=== PATIENT | male | born 1965 | race Caucasian/White ===

== ENCOUNTER → 2017-07-16 | Outpatient (CLI) | payer BC ==
[2017-07-16 15:14] LABS: CLARITY URINE CLEAR (CLEAR); COLOR URINE YELLOW (YELLOW); GLUCOSE URINE NEGATIVE (NEGATIVE); KETONES URINE NEGATIVE (NEGATIVE); LEUKOCYTE ESTERASE URINE NEGATIVE (NEGATIVE); NITRITE URINE NEGATIVE (NEGATIVE); OCCULT BLOOD URINE NEGATIVE (NEGATIVE); PROTEIN URINE NEGATIVE (NEGATIVE); SPECIFIC GRAVITY URINE 1.025 (1.005-1.030); UROBILINOGEN URINE 0.2 E.U./dL (0.2-1.0)
[2017-07-16 15:18] LABS: BASOPHILS % 0.5 % (0.0-2.0); EOSINOPHILS % 1.1 % (0.0-5.0); HEMATOCRIT. 47.4 % (42.0-52.0); LYMPHOCYTES % 38.9 % (20.0-50.0); MEAN CORPUSCULAR HEMOGLOBIN 30.3 pg (28.0-32.0); MEAN CORPUSCULAR VOLUME 89.9 fL (80.0-94.0); MEAN PLATELET VOLUME 8.1 fl (7.4-10.4); MONOCYTES % 9.4 % (2.0-8.0); NEUTROPHILS % 50.1 % (40.0-76.0); PLATELET 169 x1000/uL (130-400); RED BLOOD CELL COUNT 5.27 mill/uL (4.7-6.1); RED CELL DISTRIBUTION WIDTH 13.2 % (11.6-14.6)
[2017-07-16 15:29] LABS: CARBON DIOXIDE 27 mEq/L (21-32); CHLORIDE 106 mEq/L (98-107); HDL CHOLESTEROL 42 mg/dL (40-59); LDL CHOLESTEROL 113 mg/dL (5-100)
== END | disposition home or self-care (01) ==
LOC: RAD 12:57
PROVIDERS: ATTEND Internal Medicine Pulmonary Disease
DX: J44.9 Chronic obstructive pulmonary disease, unspecified (principal); E66.9 Obesity, unspecified; R76.11 Nonspecific reaction to tuberculin skin test without active tuberculosis
CPT/HCPCS: 36415; 71020; 80053; 80061; 81003; 84153; 85025; 87086

== ENCOUNTER → 2018-07-16 | Outpatient (CLI) | payer BC ==
[2018-07-16 06:20] LABS: BASOPHILS % 0.7 % (0.0-2.0); EOSINOPHILS % 1.9 % (0.0-5.0); HEMATOCRIT. 47.5 % (42.0-52.0); HEMOGLOBIN. 16.3 g/dL (14.0-18.0); LYMPHOCYTES % 35.1 % (20.0-50.0); MEAN CORPUSCULAR HEMOGLOBIN 31.1 pg (28.0-32.0); MEAN CORPUSCULAR VOLUME 90.8 fL (80.0-94.0); MEAN PLATELET VOLUME 7.9 fl (7.4-10.4); MONOCYTES % 11.3 % (2.0-8.0); PLATELET 162 x1000/uL (130-400); RED BLOOD CELL COUNT 5.23 mill/uL (4.7-6.1); RED CELL DISTRIBUTION WIDTH 13.3 % (11.6-14.6)
[2018-07-16 06:25] LABS: CHLORIDE 107 mEq/L (98-107)
[2018-07-16 06:28] LABS: CLARITY URINE CLEAR (CLEAR); COLOR URINE YELLOW (YELLOW); KETONES URINE TRACE (NEGATIVE); LEUKOCYTE ESTERASE URINE NEGATIVE (NEGATIVE); NITRITE URINE NEGATIVE (NEGATIVE); OCCULT BLOOD URINE NEGATIVE (NEGATIVE); PH URINE 6.5 (4.5-8.0); PROTEIN URINE NEGATIVE (NEGATIVE); SPECIFIC GRAVITY URINE 1.019 (1.005-1.030); UROBILINOGEN URINE 0.2 E.U./dL (0.2-1.0)
[2018-07-16 06:36] LABS: LDL CHOLESTEROL 103 mg/dL (5-100)
[2018-07-16 06:38] LABS: HDL CHOLESTEROL 42 mg/dL (40-59)
== END | disposition home or self-care (01) ==
LOC: LAB 05:09
PROVIDERS: ATTEND Internal Medicine Pulmonary Disease
DX: I10 Essential (primary) hypertension (principal); E78.5 Hyperlipidemia, unspecified; R79.89 Other specified abnormal findings of blood chemistry
CPT/HCPCS: 36415; 80053; 80061; 81003; 83036; 84153; 85025; G0103

== ENCOUNTER 2019-04-12 08:22 | Emergency (ER) | payer BC ==
[~2019-04-12] VITALS: Ht 167.6 cm; Wt 98.0 kg
[2019-04-12] MEDS ORDERED: IBUPROFEN 800MG TABLET PO ONE (08:45)
[2019-04-12 09:26] LABS: BASOPHILS % 0.2 % (0.0-2.0); EOSINOPHILS % 0.6 % (0.0-5.0); LYMPHOCYTES % 15.2 % (20.0-50.0); MEAN PLATELET VOLUME 8.2 fl (7.4-10.4); MONOCYTES % 10.7 % (2.0-8.0); NEUTROPHILS % 73.3 % (40.0-76.0); PLATELET 148 x1000/uL (130-400); RED BLOOD CELL COUNT 4.84 mill/uL (4.7-6.1)
[2019-04-12 09:33] LABS: CHLORIDE 106 mEq/L (98-107)
[2019-04-12 10:56] LABS: CLARITY URINE CLEAR (CLEAR); COLOR URINE YELLOW (YELLOW); KETONES URINE TRACE (NEGATIVE); LEUKOCYTE ESTERASE URINE 1+ (NEGATIVE); NITRITE URINE NEGATIVE (NEGATIVE); OCCULT BLOOD URINE NEGATIVE (NEGATIVE); PROTEIN URINE NEGATIVE (NEGATIVE); SPECIFIC GRAVITY URINE 1.023 (1.005-1.030)
[2019-04-12 11:45] VITALS: BP 111/75
== END 2019-04-12 11:47 | disposition home or self-care (01) ==
LOC: ER 08:22
DX: N39.0 Urinary tract infection, site not specified (principal); Z90.89 Acquired absence of other organs
CPT/HCPCS: 36415; 76770; 80053; 81003; 85025; 99284; Z7610

== ENCOUNTER 2019-07-06 06:01 | Emergency (ER) | payer BC ==
[~2019-07-06] VITALS: Ht 172.7 cm; Wt 100.0 kg
[2019-07-06] MEDS ORDERED: MORPHINE SULFATE 4 MG/ML CPJ (NOT FOR IM USE) IV ONE ×4 (07:15→20:45)
[2019-07-06] MEDS ORDERED: SODIUM CHLORIDE 0.9% 1,000 ML IV ONE ×3 (07:15→14:30)
[2019-07-06] MEDS ORDERED: ONDANSETRON HCL 4MG/2ML INJ IV ONE (07:15)
[2019-07-06 07:49] LABS: BASOPHILS % 0.2 % (0.0-2.0); HEMATOCRIT. 50.5 % (42.0-52.0); LYMPHOCYTES % 8.7 % (20.0-50.0); MEAN CORPUSCULAR HEMOGLOBIN 30.6 pg (28.0-32.0); MEAN CORPUSCULAR VOLUME 90.8 fL (80.0-94.0); MEAN PLATELET VOLUME 8.3 fl (7.4-10.4); NEUTROPHILS % 82.1 % (40.0-76.0); PLATELET 162 x1000/uL (130-400); RED BLOOD CELL COUNT 5.57 mill/uL (4.7-6.1); RED CELL DISTRIBUTION WIDTH 13.6 % (11.6-14.6)
[2019-07-06 07:55] LABS: CHLORIDE 102 mEq/L (98-107)
[2019-07-06 07:58] LABS: PROTHROMBIN TIME 10.7 sec (9.6-11.0)
[2019-07-06] MEDS ORDERED: HEPARIN 5000 UNITS/ML VIAL IV ONE (10:15)
[2019-07-06] MEDS ORDERED: HEPARIN 25,000 UNITS PREMIX 500 ML IV SCH ×2 (10:15→10:45)
[2019-07-06] MEDS ORDERED: HEPARIN 5000 UNITS/ML VIAL IV NR (10:30)
[2019-07-06] MEDS ORDERED: AMPICILLIN SOD/SULBACTAM NA 3 G in SODIUM CHLORIDE 0.9% 100 ML IV SCH (10:30)
[2019-07-06] MEDS ORDERED: HEPARIN 80 UNITS/KG BOLUS IV NR (10:45)
[2019-07-06] MEDS ORDERED: HEPARIN BOLUS PRN aPTT 37-44 IV (10:45)
[2019-07-06] MEDS ORDERED: HEPARIN BOLUS PRN aPTT <36 IV (10:45)
[2019-07-06] MEDS ORDERED: LEVOFLOXACIN 750MG PREMIX 150 ML IV NR (11:15)
[2019-07-06 11:54] LABS: CLARITY URINE CLEAR (CLEAR); COLOR URINE YELLOW (YELLOW); KETONES URINE 1+ (NEGATIVE); LEUKOCYTE ESTERASE URINE NEGATIVE (NEGATIVE); NITRITE URINE NEGATIVE (NEGATIVE); OCCULT BLOOD URINE NEGATIVE (NEGATIVE); PROTEIN URINE NEGATIVE (NEGATIVE)
[2019-07-06] MEDS ORDERED: METRONIDAZOLE 500 MG PREMIX 100 ML IV NR (12:00)
[2019-07-06] MEDS ORDERED: IOHEXOL-300 100 ML BOTTLE ONE (14:06)
[2019-07-06 15:10] LABS: BASOPHILS % 0.2 % (0.0-2.0); HEMATOCRIT. 48.6 % (42.0-52.0); HEMOGLOBIN. 16.3 g/dL (14.0-18.0); LYMPHOCYTES % 11.9 % (20.0-50.0); MEAN CORPUSCULAR HEMOGLOBIN 30.7 pg (28.0-32.0); MEAN CORPUSCULAR VOLUME 91.5 fL (80.0-94.0); MEAN PLATELET VOLUME 8.3 fl (7.4-10.4); MONOCYTES % 10.6 % (2.0-8.0); NEUTROPHILS % 77.3 % (40.0-76.0); PLATELET 143 x1000/uL (130-400); RED BLOOD CELL COUNT 5.31 mill/uL (4.7-6.1); RED CELL DISTRIBUTION WIDTH 13.9 % (11.6-14.6)
[2019-07-06] MEDS ORDERED: METRONIDAZOLE 500 MG PREMIX 100 ML IV ONE (16:00)
[2019-07-06 19:37] LABS: INR 1.1; PROTHROMBIN TIME 11.6 sec (9.6-11.0)
[2019-07-06] MEDS ORDERED: IOHEXOL-350 100 ML BOTTLE ONE (19:38)
[2019-07-06 19:44] LABS: PARTIAL THROMBOPLASTIN TIME 76.3 sec (23.4-31.0)
[2019-07-06 21:50] VITALS: BP 125/70
== END 2019-07-06 22:00 | disposition short-term general hospital (02) ==
LOC: ER 06:01 → CANBEDREQ 13:15 → ER 22:00
DX: I81 Portal vein thrombosis (principal); K55.9 Vascular disorder of intestine, unspecified
CPT/HCPCS: 36415; 74174; 74177; 80053; 81003; 83605; 83690; 85025; 85610; 85730; 86850; 86900; 86901; 93005; 96361; 96365; 96366; 96367; 96368; 96375; 96376; 99291; J1644; J1956; J2270; J2405; J3490; J7030; Q9967; J0295; J7050

== ENCOUNTER → 2019-07-31 | Outpatient (CLI) | payer BC ==
[2019-07-31 11:09] LABS: INR 2.8; PROTHROMBIN TIME 27.6 sec (9.6-11.0)
== END | disposition home or self-care (01) ==
LOC: LAB 10:32
PROVIDERS: ATTEND Internal Medicine Pulmonary Disease
DX: I82.409 Acute embolism and thrombosis of unspecified deep veins of unspecified lower extremity (principal)
CPT/HCPCS: 36415

== ENCOUNTER 2019-08-11 11:53 | Emergency (ER) | payer BC ==
[~2019-08-11] VITALS: Ht 172.7 cm; Wt 95.0 kg
[2019-08-11] MEDS ORDERED: KETOROLAC 15MG/ML INJ IV ONE (13:15)
[2019-08-11 15:30] VITALS: BP 120/80
== END 2019-08-11 16:14 | disposition home or self-care (01) ==
LOC: ER 11:53
DX: M79.661 Pain in right lower leg (principal); Z86.718 Personal history of other venous thrombosis and embolism
CPT/HCPCS: 73590; 73610; 93971; 99284

== ENCOUNTER → 2019-09-02 | Outpatient (CLI) | payer BC ==
[~2019-09-02] MED LIST: IOHEXOL-300 100 ML BOTTLE ONE
== END | disposition home or self-care (01) ==
LOC: CT 07:06
DX: K55.069 Acute infarction of intestine, part and extent unspecified (principal)
CPT/HCPCS: 74177; 76705; 93976; Q9967; Z7610